=== PATIENT | female | born 1975 | race Caucasian/White ===

== ENCOUNTER 2017-09-27 10:35 | Outpatient (CLI) | payer OTHER ==
--- NOTE | 2017-09-27 13:49 | CT ---
ABDOMEN AND PELVIC CT SCAN WITH IV CONTRAST: History: 42-year-old female with epigastric and periumbilical pain. History of endoscopy this morning. FINDINGS: The lung bases are clear. Status post cholecystectomy. The pancreas, liver, adrenal glands and spleen are unremarkable. Several small renal cysts. No renal calculus or acute obstruction. Normal appea ring appendix. No mass, abscess, adenopathy, or abnormal fluid collection throughout the abdomen or p khushbu. Status post hysterectomy. 2 cm diameter left ovarian cyst. IMPRESSION: Status post cholecystectomy and hysterectomy. 2 cm diameter left ovarian cyst. Normal appearing appen shamika. No other significant acute process. POS: [facility]
[2017-09-27] MEDS ORDERED: Iopamidol 250 51% 100 ML VIAL FS ONE (14:02)
== END 2017-09-27 10:36 | disposition home or self-care (01) ==
LOC: CT 10:35
PROVIDERS: ATTEND Internal Medicine Gastroenterology
DX: R10.13 Epigastric pain (principal); R10.33 Periumbilical pain; N28.1 Cyst of kidney, acquired; Z90.49 Acquired absence of other specified parts of digestive tract; Z90.710 Acquired absence of both cervix and uterus
CPT/HCPCS: 74177

== ENCOUNTER 2017-12-13 07:40 | Day surgery (SDC) | payer OTHER ==
[2017-12-12 13:14] VITALS: BMI 40.1
[2017-12-13] MEDS ORDERED: PROPOFOL 200 MG/20 ML VIAL ONE (16:47)
[2017-12-13] MEDS ORDERED: Lidocaine 1% PF 5 ML VIAL ONE (16:47)
--- NOTE | 2017-12-14 15:10 | OP ---
DATE OF PROCEDURE: 12/13/2017 PROCEDURE PERFORMED: Colonoscopy. PREOPERATIVE DIAGNOSIS: Change in bowel habits, constipation and epigastric to periumbilical abdomin al pain PROCEDURE IN DETAIL: Informed consent was obtained from the patient. She was sedated with total int ravenous anesthesia. The rectal exam was performed and was normal. The preparation quality was exce llent. Colonoscope was advanced to the terminal ileum without difficulty. The mucosa of the termina l ileum was normal. The ileocecal valve and appendiceal orifice were clearly identified. The coloni c mucosa was normal throughout. Retroflexed views in the rectum were normal. IMPRESSION: Normal ileal colonoscopy. RECOMMENDATIONS: 1. MiraLax 17 grams daily. 2. Follow up in GI clinic.
== END 2017-12-13 10:14 | disposition home or self-care (01) ==
LOC: SDC 07:40
PROVIDERS: ATTEND Internal Medicine Gastroenterology
PROC: 0DJD8ZZ Inspection of Lower Intestinal Tract, Via Natural or Artificial Opening Endoscopic (ICD-10-PCS; principal; 2017-12-13)
DX: K59.00 Constipation, unspecified (principal); R10.10 Upper abdominal pain, unspecified; Z98.51 Tubal ligation status; Z90.710 Acquired absence of both cervix and uterus; Z90.49 Acquired absence of other specified parts of digestive tract; Z90.89 Acquired absence of other organs; Z90.79 Acquired absence of other genital organ(s); Z90.722 Acquired absence of ovaries, bilateral; Z98.890 Other specified postprocedural states; Z87.891 Personal history of nicotine dependence
CPT/HCPCS: J2001; J2704

== ENCOUNTER 2018-02-28 15:37 | Outpatient (CLI) | payer OTHER | END 2018-02-28 15:38 | disposition home or self-care (01) | LOC: DTY/OP 15:37 | PROVIDERS: ATTEND Surgery | DX: E66.01 Morbid (severe) obesity due to excess calories (principal) | CPT/HCPCS: 97802 ==

== ENCOUNTER 2018-03-08 15:08 | Outpatient (CLI) | payer OTHER | END 2018-03-08 15:09 | disposition home or self-care (01) | LOC: BICMAMMO 15:08 | PROVIDERS: ATTEND Family Medicine | DX: Z12.31 Encounter for screening mammogram for malignant neoplasm of breast (principal); N64.89 Other specified disorders of breast; R92.1 Mammographic calcification found on diagnostic imaging of breast | CPT/HCPCS: 77063; 77067 ==

== ENCOUNTER 2018-03-14 14:33 | Outpatient (CLI) | payer OTHER | END 2018-03-14 14:34 | disposition home or self-care (01) | LOC: BICULT 14:33 | PROVIDERS: ATTEND Family Medicine | DX: R92.2 Inconclusive mammogram (principal) ==

== ENCOUNTER → 2018-03-16 | Day surgery (SDC) | payer OTHER ==
--- NOTE | 2018-03-16 11:07 | MMO ---
STEREOTACTIC RIGHT BREAST BIOPSY BIOPSY MARKING CLIP PLACEMENT RIGHT BREAST: Date: 03/16/18 INDICATION: Area of focal asymmetry/architectural distortion involving the upper inner right breast. PROCEDURE: Informed consent was obtained. The patient was escorted to the procedural suite. Patient was placed o n the stereotactic table in the prone position with the area of interest at the right breast placed i nto compression and confirmed with stereotactic, mammographic views. The right breast was prepped and draped in the standard sterile fashion. After confirmation of appropriate location, topical anesthes ia, including buffered 1% lidocaine, was instilled into the right breast after standard sterile prepp ing and draping was performed. Small skin incision was made, through which a 10 gauge stereotactic bi opsy needle was advanced to the leading edge of the area of interest within the right breast. This wa s confirmed with stereotactic views and the needle was then deployed. After confirmation of needle pl acement, six core specimens were acquired. These were radiographed and then sent in a sealed containe r to pathology department for further analysis. Postprocedural clip placement was then performed through the existing incision site. Biopsy marking c lip was advanced to the biopsy site and clip was deployed. Images were obtained for confirmation. Patient was transferred to the mammography department and postprocedural mammographic views revealed biopsy change at the site of interest within the right breast with associated biopsy marking clip at the site of distortion. There were no procedural complications. IMPRESSION: 1. Technically successful stereotactic biopsy of right breast. 2. Technically successful clip deployment. Pathology results are pending. Patient will be notified when they are received. POS: [facility]
--- NOTE | 2018-03-16 19:20 | MMO ---
MAMMOGRAPHIC SURGICAL SPECIMEN RADIOGRAPH: CLINICAL INDICATIONS: Status post stereotactic biopsy, right breast. FINDINGS: Post procedural radiographic views of the excised specimens reveal appropriate specimen tissue within the radiographed specimen region. IMPRESSION: Radiographed specimens, status post stereotactic biopsy, right breast. POS: [facility]
== END ==
LOC: MAMMO 06:50
PROVIDERS: ATTEND Family Medicine
PROC: 0HBT3ZX Excision of Right Breast, Percutaneous Approach, Diagnostic (ICD-10-PCS; principal; 2018-03-16)
DX: N60.11 Diffuse cystic mastopathy of right breast (principal)
CPT/HCPCS: 19081; 76098; 88305

== ENCOUNTER 2018-04-12 09:58 | Day surgery (SDC) | payer OTHER ==
[2018-04-05 15:53] VITALS: BMI 41.0
[2018-04-12] MEDS ORDERED: Midazolam HCl 2 mg/2 ml Vial ONE (12:00)
[2018-04-12] MEDS ORDERED: CEFAZOLIN/Water 2 GM/20 ML SYRINGE ONE (13:00)
[2018-04-12] MEDS ORDERED: Fentanyl 100 MCG/2 ML VIAL ONE ×2 (13:04→14:37)
[2018-04-12] MEDS ORDERED: Bupivacaine/Epinephrine 0.25% 30 ML VIAL ONE (13:12)
[2018-04-12] MEDS ORDERED: Lidocaine 2% 10 ML INJ ONE (13:12)
[2018-04-12] MEDS ORDERED: PHENYLEPHRINE-NS 100 MCG/ML 10 ML SYRINGE ONE (13:59)
[2018-04-12] MEDS ORDERED: Ondansetron HCl/PF 4 MG/2 ML Vial ONE (13:59)
[2018-04-12] MEDS ORDERED: Lidocaine 1% PF 5 ML VIAL ONE (13:59)
[2018-04-12] MEDS ORDERED: PROPOFOL 200 MG/20 ML VIAL ONE (13:59)
--- NOTE | 2018-04-12 14:51 | MMO ---
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 FOLDER HAND: Dr. Navarrete. COMPLICATIONS: None. TECHNIQUE: Prior to the procedure, the risks and benefits of a needle localization of the right breast biopsy cl ip and asymmetry were explained to the patient and she consented fully to the procedure. Approach fro m superior was chosen. The patient was placed with compression. The upper aspect of the breast was prepped. The asymmetry an d clip were localized with the localization grid. Lidocaine was used to anesthetize the skin and soft tissues down towards the clip and asymmetry. A 7.5 cm [place] needle was then placed perpendicular to the grid, into the region of the asymmetry. Th e wire was deployed. There was good position of the needle and wire, which passed through the mass an d adjacent to the clip. The patient was sent to day surgery for eventual surgical excision of the mass. A specimen radiograph was performed, showing the needle to have been removed. The wire was seen passi ng through the asymmetry and immediately adjacent to the biopsy clip. The asymmetry and biopsy clip w ere in the center of the surgical specimen. IMPRESSION: Status post successful needle localization of right breast asymmetry. POS: [facility]
--- NOTE | 2018-04-13 14:49 | OP ---
DATE OF PROCEDURE: 04/12/2018 PREOPERATIVE DIAGNOSIS: Right breast mass. POSTOPERATIVE DIAGNOSIS: Right breast mass. PROCEDURE: Excision of right breast mass after needle localization. SURGEON: Chetan Uriostegui M.D. ANESTHESIA: General. ESTIMATED BLOOD LOSS: Minimal. COMPLICATIONS: None. SPECIMEN: Right breast mass marked with two short superior, one long lateral [facility]. TECHNIQUE: The patient had preoperative placement needle localization wire in her right breast and h er previous biopsy showing hyperplasia. Taken to the operating room and laid supine on the operating room table. After general anesthetic was obtained, the right breast and chest is prepped and draped in a sterile fashion. Incision was made near the nipple of the right breast and flaps are raised mendes perior, medially, inferolaterally posterior to the end of the needle localization wire. The breast s pecimen is marked with two short superior, one long lateral and sent to path for final diagnosis. Th e wound is irrigated. Local anesthetic is applied. The wound was closed using 3-0 Vicryl, 4-0 Monoc ryl, and Dermabond. The patient is taken to the recovery room in stable condition. All instrument c ounts, needle counts, lap counts are correct.
== END 2018-04-12 15:44 | disposition home or self-care (01) ==
LOC: SDC 09:58
PROVIDERS: ATTEND Surgery
PROC: 0HBT0ZX Excision of Right Breast, Open Approach, Diagnostic (ICD-10-PCS; principal; 2018-04-12)
DX: D05.11 Intraductal carcinoma in situ of right breast (principal); F41.8 Other specified anxiety disorders; Z79.899 Other long term (current) drug therapy
CPT/HCPCS: 19281; 76098; 88307; 88341; 88342; 88360; 96374; J0131; J2001; J2250; J2405; J2704; J3010; Q9968

== ENCOUNTER 2018-09-19 08:00 | Inpatient (IN) | payer OTHER ==
[2018-09-19 08:35] VITALS: BMI 42.0
[2018-10-03] MEDS ORDERED: Bupivacaine/Epinephrine 0.25% 30 ML VIAL ONE (09:34)
[2018-10-03] MEDS ORDERED: Heparin 5,000 UNITS/ML VIAL ONE (09:44)
[2018-10-03] MEDS ORDERED: Midazolam HCl 2 mg/2 ml Vial ONE (09:44)
[2018-10-03] MEDS ORDERED: CEFAZOLIN 2 GM/50 ML BAG ONE (09:44)
[2018-10-03] MEDS ORDERED: Fentanyl 100 MCG/2 ML VIAL ONE ×2 (09:45→11:40)
[2018-10-03] MEDS ORDERED: HYDROmorphone 2 MG/ML VIAL ONE (11:26)
[2018-10-03] MEDS ORDERED: Promethazine HCl 25 MG/ML VIAL SLOW IVP PRN (11:34)
[2018-10-03] MEDS ORDERED: HYDROmorphone 2 MG/ML VIAL SLOW IVP PRN (11:34)
[2018-10-03] MEDS ORDERED: Promethazine HCl 25 MG/ML VIAL IM PRN ×3 (11:34→14:03)
[2018-10-03] MEDS ORDERED: Meperidine HCl/PF 25 MG/ML VIAL SLOW IVP PRN (11:34)
[2018-10-03] MEDS ORDERED: Promethazine HCl 25 MG/ML VIAL ONE (11:40)
[2018-10-03] MEDS ORDERED: Meperidine HCl/PF 25 MG/ML VIAL ONE (11:40)
[2018-10-03] MEDS ORDERED: Naloxone HCl 0.4 mg/ml Vial IV PRN (11:51)
[2018-10-03] MEDS ORDERED: Zolpidem Tartrate 5 MG TAB PO PRN (11:51)
[2018-10-03] MEDS ORDERED: Ketorolac Tromethamine 30 MG/ML VIAL IVP PRN (11:51)
[2018-10-03] MEDS ORDERED: diphenhydrAMINE 50 MG/ML VIAL IVP PRN ×2 (11:51→14:03)
[2018-10-03] MEDS ORDERED: diphenhydrAMINE 25 MG CAP PO PRN (11:51)
[2018-10-03] MEDS ORDERED: fentaNYL Citrate/PF 2,000 MCG in Sodium Chloride 0.9% 60 ML IV PRN (11:51)
[2018-10-03] MEDS ORDERED: diphenhydrAMINE 50 MG/ML VIAL IM PRN (11:51)
[2018-10-03] MEDS ORDERED: Communication Order-Pharmacy FS SCH (12:00)
[2018-10-03] MEDS ORDERED: D5 1/2 NS w/20 mEq KCL 1,000 ML ONE (12:59)
[2018-10-03] MEDS ORDERED: Dextrose 5% in Water 1,000 ML IV PRN (14:03)
[2018-10-03] MEDS ORDERED: hydrALAZINE 20 MG/ML VIAL SLOW IVP PRN (14:03)
[2018-10-03] MEDS ORDERED: Ondansetron PF 4 MG/2 ML Vial IVP PRN (14:03)
[2018-10-03] MEDS ORDERED: Hydrocodone-Acetamin 15 ML UDCUP PO PRN (14:03)
[2018-10-03] MEDS ORDERED: Dextrose 50% Abboject 50 ML SYRINGE SLOW IVP PRN (14:03)
[2018-10-03] MEDS: D5 1/2 NS w/20 mEq KCL 1,000 ML IV SCH ×2 (14:57→22:31)
[2018-10-03] MEDS: Ondansetron PF 4 MG/2 ML Vial IVP PRN ×2 (15:29→21:56)
[2018-10-03] MEDS ORDERED: Lidocaine 1% PF 5 ML VIAL ONE (17:44)
[2018-10-03] MEDS ORDERED: PROPOFOL 200 MG/20 ML VIAL ONE (17:44)
[2018-10-03] MEDS ORDERED: Ketorolac Tromethamine 30 MG/ML VIAL ONE (17:44)
[2018-10-03] MEDS ORDERED: Metoclopramide HCl 10 MG/2 ML VIAL ONE (17:44)
[2018-10-03] MEDS ORDERED: Dexamethasone 20 MG/5 ML VIAL ONE (17:44)
[2018-10-03] MEDS ORDERED: Ondansetron PF 4 MG/2 ML Vial ONE (17:44)
[2018-10-03] MEDS ORDERED: Glycopyrrolate 0.2 MG/ML 5 ML SYRINGE ONE (17:44)
--- NOTE | 2018-10-03 18:58 | OP ---
DATE OF PROCEDURE: 10/03/2018 PREOPERATIVE DIAGNOSIS: Morbid obesity with a body mass index of 40. POSTOPERATIVE DIAGNOSES: 1. Morbid obesity with a body mass index of 40. 2. Paraesophageal hiatal hernia. PROCEDURE PERFORMED: 1. Laparoscopic sleeve gastrectomy with [place] staple line reinforcements and 38-[place] bougie. 2. Paraesophageal hiatal hernia repair without mesh or fundoplication. 3. EGD. ANESTHESIA: General. COMPLICATION: None. SPECIMEN: Stomach. FINDINGS: Small hiatal hernia. DESCRIPTION OF PROCEDURE: The patient was taken to the operating room and laid supine on the operating room table. After general anesthetic was obtained, bilateral legs and arms were double strapped to bariatric table. The abdomen was prepped and draped in a sterile fashion. Left subcostal 5-mm Optiview trocar was placed in usual fashion. High-flow pneumoperitoneum was obtained. Left and right abdominal 12-mm ports as well as right subcostal 5-mm port were placed under direct visualization. A 5-mm incision was made below the xiphoid and Rosa was used to raise the liver off the GE junction. Short gastrics were taken down mid body of stomach to left berry of the diaphragm. Left berry posterior fundus was completely dissected, it revealed a hiatal hernia. Short gastrics were taken down to a distance of 5 cm proximal to the pylorus. Circumferential dissection of the esophagus was performed at the GE junction, pulling the fundus back down into the abdomen. This was performed to the gastrohepatic ligament side as well. A 38 bougie was brought in with its tip left in the antrum of the stomach. Multiple loads of the [place] stapling device with [place] staple line reinforcements were used to perform the sleeve. At first, it was fired at a distance of 6 cm proximal to the pylorus, angled up towards the incisura. Care was taken to avoid being too close to incisura. Multiple loads were then fired up along the bougie. Stomach was completely transected at the angle of His. Stomach was removed from the left abdominal incision. The fascial defect was closed using [place] needle 0 Vicryl tie. One Ethibond suture and the tie knot system were used to close the crural defect posteriorly. No bleeding on the staple line. The bougie was removed and the EGD scope was passed into the esophagus, stomach, and to the level of duodenum without obstruction. There was no air leakage on the staple line or bleeding. There was no evidence of stricture at the incisura or at the diaphragmatic hiatus. EGD scope was used to decompress the stomach, it was pulled and removed. Rosa retractor was removed under direct visualization without bleeding. No bleeding in the abdomen. All ports were removed under direct visualization without bleeding. Pneumoperitoneum was let down. The Vicryl was used to close the fascial defect from the left abdominal incisions. All incisions were irrigated and closed using 4-0 Monocryl and Dermabond. The patient was sent to Recovery in stable condition. All instrument counts, needle counts, lap counts were correct. Job ID: [id number]
[2018-10-03] MEDS: Acetaminophen 1,000 MG in Premix Bag 1 BAG IVPB SCH ×2 (19:34→23:57)
[2018-10-03] MEDS: Enoxaparin Sodium 40 MG/0.4 ML SYRINGE SC SCH (20:41)
[2018-10-04] MEDS: Ondansetron PF 4 MG/2 ML Vial IVP PRN ×3 (05:18→20:55)
[2018-10-04] MEDS: Acetaminophen 1,000 MG in Premix Bag 1 BAG IVPB SCH ×2 (05:19→11:12)
[2018-10-04 06:28] LABS: #Lymphocytes 1.5 thou/uL (1.20-3.40); #Monocytes 0.9 thou/uL (0.11-0.59); #Neutrophils 5.8 thou/uL (1.40-6.50); %Basophils 0.1 % (0.0-1.0); %Eosinophils 0.1 % (0.0-10.0); %Lymphocytes 17.9 % (21.0-51.0); %Monocytes 10.8 % (0.0-10.0); %Neutrophils 71.2 % (42.0-75.0); Hemoglobin 12.9 g/dL (12.0-16.0); Mean Corpuscular HGB CONC 33.4 g/dL (32.0-36.0); Mean Corpuscular Hemoglobin 32.6 pg (27.0-31.0); Mean Corpuscular Volume 97.7 fL (78.0-98.0); Mean Platelet Volume 7.5 fL (7.4-10.4); Platelet Count 227 thou/uL (130-400); RBC Distribution Width 11.2 % (11.5-14.5); Red Blood Cell (RBC) Count 3.95 mill/uL (4.20-5.40); White Blood Cell (WBC) Count 8.1 thou/uL (4.8-10.8)
[2018-10-04 06:45] LABS: Anion Gap 13 mmol/L (10-20); BUN (Urea Nitrogen) 6 mg/dL (7.0-18.7); Calc. Creatinine Clearance 175 mL/min (70-130); Calcium 8.4 mg/dL (7.8-10.44); Carbon Dioxide 18 mmol/L (22-29); Chloride 111 mmol/L (98-107); Estimated GFR-MDRD 88; Glucose 133 mg/dL (70-105); Sodium 138 mmol/L (136-145)
[2018-10-04] MEDS: D5 1/2 NS w/20 mEq KCL 1,000 ML IV SCH ×3 (07:00→23:34)
[2018-10-04] MEDS: Pantoprazole 40 MG VIAL IVP SCH (09:10)
--- NOTE | 2018-10-04 14:36 | PRG ---
DATE OF SERVICE: 10/04/2018 SUBJECTIVE: Postop day #1 gastric sleeve. Ms. Willis has been up. She is drinking her liquids. She is not vomiting; however, she has nausea and some dizziness. OBJECTIVE: VITAL SIGNS: Pulse is 81, respirations 14, she is afebrile. Blood pressure 116/77. She has voided multiple times. CHEST: Clear. HEART: Regular rate and rhythm. ABDOMEN: Soft, appropriately tender. Wounds are healing well. ASSESSMENT: Postop day #1 gastric sleeve with persistent nausea. PLAN: Keep tonight, likely home tomorrow. Job ID: [id number]
[2018-10-04] MEDS: Hydrocodone-Acetamin 15 ML UDCUP PO PRN ×2 (15:11→23:34)
[2018-10-04] MEDS: Enoxaparin Sodium 40 MG/0.4 ML SYRINGE SC SCH (20:49)
[2018-10-05] MEDS: D5 1/2 NS w/20 mEq KCL 1,000 ML IV SCH (07:59)
[2018-10-05] MEDS: Pantoprazole 40 MG VIAL IVP SCH (08:01)
[2018-10-05 08:18] VITALS: BP 113/76; TEMP 98.1
--- NOTE | 2018-10-05 14:29 | DIS ---
DATE OF ADMISSION: 10/03/2018 DATE OF DISCHARGE: 10/05/2018 ADMITTING DIAGNOSIS: Morbid obesity. DISCHARGE DIAGNOSIS: Morbid obesity. PROCEDURE: Laparoscopic sleeve by Dr. Uriostegui without complication. CONDITION UPON DISCHARGE: Improved. HOSPITAL COURSE: On postop day #2, the patient is doing well. Her nausea is improved. She is tolerating liquids, ambulatory. Vital signs are stable. She was discharged home. She will follow up with me in 2 weeks. Job ID: [id number]
== END 2018-10-05 12:00 | disposition home or self-care (01) | DRG 621 ==
LOC: SURG A 10-03 07:55 → EDSTATUS 10-03 08:00 → SURG A 10-03 14:21
PROVIDERS: ADMIT Surgery; ATTEND Surgery
PROC: 0DB64Z3 Excision of Stomach, Percutaneous Endoscopic Approach, Vertical (ICD-10-PCS; principal; 2018-10-03)
PROC: 0BQT4ZZ Repair Diaphragm, Percutaneous Endoscopic Approach (ICD-10-PCS; 2018-10-03)
DX: E66.01 Morbid (severe) obesity due to excess calories (principal); Z68.41 Body mass index [BMI] 40.0-44.9, adult; K44.9 Diaphragmatic hernia without obstruction or gangrene; N80.9 Endometriosis, unspecified; F32.9 Major depressive disorder, single episode, unspecified; F41.9 Anxiety disorder, unspecified; K58.9 Irritable bowel syndrome, unspecified; R11.0 Nausea; Z82.49 Family history of ischemic heart disease and other diseases of the circulatory system
CPT/HCPCS: 36415; 80048; 85025; 88307; 88312; 94760; C9113; J0131; J1100; J1170; J1610; J1644; J1650; J1885; J2001; J2175; J2250; J2405; J2550; J2704; J2765; J3010; J7050

== ENCOUNTER 2018-09-19 08:09 | Outpatient (CLI) | payer OTHER ==
[2018-09-19 09:55] LABS: #Eosinphils 0.1 thou/uL (0.0-0.7); #Lymphocytes 1.1 thou/uL (1.20-3.40); #Monocytes 0.5 thou/uL (0.11-0.59); #Neutrophils 3.5 thou/uL (1.40-6.50); %Basophils 0.5 % (0.0-1.0); %Eosinophils 2.5 % (0.0-10.0); %Lymphocytes 21.6 % (21.0-51.0); %Monocytes 9.4 % (0.0-10.0); %Neutrophils 65.9 % (42.0-75.0); Hemoglobin 12.4 g/dL (12.0-16.0); Mean Corpuscular HGB CONC 34.2 g/dL (32.0-36.0); Mean Corpuscular Hemoglobin 33.2 pg (27.0-31.0); Mean Corpuscular Volume 97.1 fL (78.0-98.0); Mean Platelet Volume 8.7 fL (7.4-10.4); Platelet Count 174 thou/uL (130-400); RBC Distribution Width 11.2 % (11.5-14.5); Red Blood Cell (RBC) Count 3.75 mill/uL (4.20-5.40); White Blood Cell (WBC) Count 5.3 thou/uL (4.8-10.8)
[2018-09-19 10:08] LABS: ALT (SGPT) 21 U/L (8-55); AST (SGOT) 15 U/L (5-34); Albumin 3.7 g/dL (3.5-5.0); Alkaline Phosphatase 49 U/L (40-150); Anion Gap 12 mmol/L (10-20); BUN (Urea Nitrogen) 15 mg/dL (7.0-18.7); Bilirubin, Direct 0.2 mg/dL (0.1-0.3); Bilirubin, Total 0.6 mg/dL (0.2-1.2); Calc. Creatinine Clearance 0 mL/min (70-130); Calcium 8.8 mg/dL (7.8-10.44); Carbon Dioxide 20 mmol/L (22-29); Chloride 110 mmol/L (98-107); Estimated GFR-MDRD 87; Globulin 2.5 g/dL (2.4-3.5); Glucose 95 mg/dL (70-105); Hemoglobin A1c 4.8 % (4.0-6.0); Potassium 3.5 mmol/L (3.5-5.1); Protein, Total 6.2 g/dL (6.0-8.3); Sodium 138 mmol/L (136-145)
--- NOTE | 2018-09-19 13:16 | EKG ---
Test Reason : Blood Pressure : / mmHG Vent. Rate : 066 BPM Atrial Rate : 066 BPM P-R Int : 158 ms QRS Dur : 092 ms QT Int : 392 ms P-R-T Axes : 028 037 011 degrees QTc Int : 410 ms Normal sinus rhythm Nonspecific T wave abnormality Abnormal ECG When compared with ECG of 08-DEC-2009 11:35, No significant change was found Confirmed by AKASH GOMEZ, SShorty ([id number]) on 09/19/2018 1:15:52 PM Referred By: VELMA Confirmed By:DR. Shobha BUSTOS MD
== END 2018-09-19 08:10 | disposition home or self-care (01) ==
LOC: LABBT 08:09
PROVIDERS: ATTEND Surgery
DX: Z01.818 Encounter for other preprocedural examination (principal); E66.01 Morbid (severe) obesity due to excess calories
CPT/HCPCS: 80053; 80076; 83036; 85025; 93005; 93010

== ENCOUNTER 2019-03-12 14:45 | Outpatient (CLI) | payer OTHER ==
--- NOTE | 2019-03-12 15:33 | MMO ---
Bilateral MAMMO Bilat Diag DDI+HARMONY. CLINICAL HISTORY: Patient is 44 years old and is seen for diagnostic exam. The patient has no family history of breast cancer. The patient has no personal history of cancer. VIEWS: The views performed were: bilateral craniocaudal with tomosynthesis; bilateral mediolateral oblique with tomosynthesis; and bilateral mediolateral. FILMS COMPARED: The present examination has been compared to prior imaging studies performed at [facility] on 06/17/2014 and 03/08/2018, and at [facility] on 12/30/2011. MAMMOGRAM FINDINGS: There are scattered fibroglandular densities. There is an area of architectural distortion with associated post-surgical scar seen in the right breast. There are no suspicious masses, suspicious calcifications, or new areas of architectural distortion. IMPRESSION: A ROUTINE FOLLOW-UP MAMMOGRAM IN 1 YEAR IS RECOMMENDED. THE RESULTS OF THIS EXAM WERE SENT TO THE PATIENT. ACR BI-RADS Category 2 - Benign finding MAMMOGRAPHY NOTE: 1. A negative mammogram report should not delay a biopsy if a dominant of clinically suspicious mass is present. 2. Approximately 10% to 15% of breast cancers are not detected by mammography. 3. Adenosis and dense breasts may obscure an underlying neoplasm.
== END 2019-03-12 14:46 | disposition home or self-care (01) ==
LOC: BICMAMMO 14:45
PROVIDERS: ATTEND Internal Medicine Hematology & Oncology
DX: C50.211 Malignant neoplasm of upper-inner quadrant of right female breast (principal)
CPT/HCPCS: 77066; G0279

== ENCOUNTER 2019-08-13 16:08 | Outpatient (CLI) | payer OTHER ==
--- NOTE | 2019-08-13 16:48 | RAD ---
EXAM: Right femur: 4 views INDICATIONS: Femur pain COMPARISON: None. FINDINGS: No fracture. No osseous abnormality. IMPRESSION: Negative exam
--- NOTE | 2019-08-13 16:50 | RAD ---
EXAM: Left femur: 4 views INDICATIONS: Femur pain COMPARISON: None. FINDINGS: No fracture. No osseous abnormality. IMPRESSION: No acute finding
== END 2019-08-13 16:09 | disposition home or self-care (01) ==
LOC: BICRAD 16:08
PROVIDERS: ATTEND Internal Medicine Hematology & Oncology
DX: M25.551 Pain in right hip (principal); M25.552 Pain in left hip; C50.211 Malignant neoplasm of upper-inner quadrant of right female breast
CPT/HCPCS: 36415; 80053; 82306; 82607; 82728; 82746; 83735; 83970; 84443

== ENCOUNTER 2019-08-31 13:35 | Outpatient (CLI) | payer OTHER ==
[~2019-08-31 13:35] MED LIST: Magnevist 469MG/ML 20 ML VIAL ONE
--- NOTE | 2019-08-31 18:21 | MRI ---
MRI Lumbar Spine with and without IV contrast: HISTORY: Acute left-sided low back pain with sciatica. COMPARISON: None FINDINGS: A 1.4 cm increased T2-weighted signal intensity lesion is seen in the midportion left kidney with a 0 .9 cm increased T2-weighted signal intensity lesion seen in the inferior pole left kidney each of which demonstrates corresponding decreased T1-weighted signal intensity without enhancement on the po stcontrast images. Tiny subcentimeter increased T2-weighted signal intensity foci are seen in the inferior pole right kidney which also do not appear to demonstrate enhancement and likely represents cysts. The remainder of the retroperitoneal structures demonstrate a grossly normal appearance. Conus medullaris is normal in morphology and terminates at the L1 level. L1-2: There is no disc bulge or disc herniation. Central spinal canal and neural foramina are patent. L2-3: There is no disc bulge or disc herniation. Central spinal canal and neural foramina are patent. L3-4: There is minimal disc bulge, but the central spinal canal and neural foramina are patent. L4-5: There is a mild disc osteophyte complex. This results in mild effacement of the ventral aspect of the thecal sac, but there is no significant neural foraminal narrowing. L5-S1: There is no disc bulge or disc herniation. Central spinal canal and neural foramina are patent . No abnormal areas of enhancement are seen after the administration of intravenous contrast. IMPRESSION: 1. Minimal degenerative changes at the L3-4 and L4-5 levels. There is no significant central canal or neural foraminal narrowing at any level of the lumbar spine. 2. Bilateral renal cysts.
== END 2019-08-31 13:36 | disposition home or self-care (01) ==
LOC: SCSMRI 13:35
PROVIDERS: ATTEND Family Medicine
DX: M54.42 Lumbago with sciatica, left side (principal); M47.816 Spondylosis without myelopathy or radiculopathy, lumbar region; N28.1 Cyst of kidney, acquired
CPT/HCPCS: 72158; A9579

== ENCOUNTER 2019-09-28 14:32 | Outpatient (CLI) | payer OTHER ==
--- NOTE | 2019-09-28 16:27 | MRI ---
MR of the left leg (left hip and left thigh) without contrast Indication: History of left leg and left hip pain. TECHNIQUE: Multiplanar multisequence MR images were obtained of the left hip without IV contrast. Com parisons are made with an MR lumbar spine dated 08/31/[address] of the abdomen and pelvis dated 10/07/2017. FINDINGS: There is mild tendinosis and trochanteric bursitis involving the left gluteus minimus and m edius tendon. The left rectus femoris and left hamstring origin appear within normal limits. No iliopsoas bursitis is evident. No enlarged lymph nodes are evident. There is a 4.0 x 3.9 cm T1 hyperi ntense, T2 hyperintense lesion involving the region left adnexa suspicious for hemorrhagic cyst. There is no evidence for fracture. The visualized musculature of the proximal left thigh appears with in normal limits. No bone marrow signal abnormality seen involving visualized aspects of the left femur. There is no evidence to suggest presence of a stress fracture. No joint effusion is evident. IMPRESSION: 1. Mild tendinosis involving left gluteus minimus and medius tendon with mild trochanteric bursitis. 2. 4.0 cm suspected left adnexal hemorrhagic cyst. Follow-up ultrasound in 6-8 weeks is recommended t o document resolution. 3. No definite abnormal signal intensity seen within the left thigh musculature. No abnormal marrow s ignal intensity seen involving the left femur up to the level of the distal femoral metadiaphyseal region.
--- NOTE | 2019-09-28 17:07 | MRI ---
MRI lumbar spine without and with gadolinium contrast HISTORY: Low back pain with left leg radiculopathy. COMPARISON: 08/31/2019. FINDINGS: Conus medullaris has normal appearance. Vertebral body heights and alignment are maintained . Small hemangioma within the L2 vertebral body. Small cysts of the kidneys are apparent. Sagittal images partially demonstrate a multiloculated cysti c lesion within the left side of the pelvis. It is incompletely imaged. At the L4-5 level, there is minimal posterior disc bulge. Degenerative changes of the facets. Thecal sac is patent. Mild stenosis of each neural foramen. IMPRESSION: Mild degenerative changes at the L4-5 level. No focal disc herniation or nerve root compr ession. Probable left adnexal complex cyst. Please correlate regarding possibility of left adnexal mass as th e source of pain. Pelvic sonogram may be helpful for better characterization.
== END 2019-09-28 14:33 | disposition home or self-care (01) ==
LOC: BICMRI 14:32
PROVIDERS: ATTEND Family Medicine
DX: M54.42 Lumbago with sciatica, left side (principal); M79.605 Pain in left leg; M70.62 Trochanteric bursitis, left hip; M67.952 Unspecified disorder of synovium and tendon, left thigh; M47.816 Spondylosis without myelopathy or radiculopathy, lumbar region
CPT/HCPCS: 72158; A9579

== ENCOUNTER 2019-10-05 07:02 | Outpatient (CLI) | payer OTHER ==
--- NOTE | 2019-10-05 08:03 | ULT ---
ULTRASOUND PELVIC DOPPLER DUPLEX: DATE: 10/05/2019 HISTORY: Cystic lesion found in the left side of the pelvis, on lumbar spine MRI of 09/28/2019 in 44-year-old f emale. TECHNIQUE: Transabdominal transducer used to visualize intrapelvic contents with grayscale, color-flow, and spec tral analysis. Transvaginal ultrasound not performed. FINDINGS: Right ovary: Surgically absent by history. Uterus: Surgically absent. Left ovary: Approximately 2.5 x 4 x 2 cm. 2 x 2 x 1.5 cm left ovarian simple cyst. Blood flow demonstrated in the left ovary by Doppler. IMPRESSION: 1. A 2 cm left ovarian cyst. This is significantly smaller than the complex cystic lesion partially v isualized on the recent lumbar spine MRI, and may not correspond to that. 2. Status post hysterectomy and right oophorectomy.
== END 2019-10-05 07:03 | disposition home or self-care (01) ==
LOC: BICULT 07:02
PROVIDERS: ATTEND Family Medicine
DX: N94.9 Unspecified condition associated with female genital organs and menstrual cycle (principal); N83.202 Unspecified ovarian cyst, left side; Z90.710 Acquired absence of both cervix and uterus; Z90.721 Acquired absence of ovaries, unilateral
CPT/HCPCS: 36415; 76856; 82306; 82607; 82728; 84425; 93976

== ENCOUNTER 2020-05-09 14:20 | Outpatient (CLI) | payer OTHER ==
--- NOTE | 2020-05-09 14:51 | MMO ---
Bilateral MAMMO Bilat Diag DDI+HARMONY. CLINICAL HISTORY: Patient is 45 years old and is seen for diagnostic exam. The patient has no family history of breast cancer. The patient has no personal history of cancer. The patient has a history of right Lumpectomy in 2018 - malignant and right Ultrasound Guided Core Biopsy in 2018 - malignant. VIEWS: The views performed were: bilateral craniocaudal with tomosynthesis; bilateral mediolateral oblique with tomosynthesis; and bilateral mediolateral with tomosynthesis. FILMS COMPARED: The present examination has been compared to prior imaging studies performed at [facility] on 06/17/2014, 03/08/2018 and 03/12/2019, and at [facility] on 12/30/2011. This study has been interpreted with the assistance of computer-aided detection. MAMMOGRAM FINDINGS: There are scattered fibroglandular densities. Finding 1: There are stable post operative changes seen in the right breast. Finding 2: There are stable benign appearing calcifications seen in both breasts. There are no suspicious masses, suspicious calcifications, or new areas of architectural distortion. IMPRESSION: THERE IS NO MAMMOGRAPHIC EVIDENCE OF MALIGNANCY. A ROUTINE FOLLOW-UP MAMMOGRAM IN 1 YEAR IS RECOMMENDED. THE RESULTS OF THIS EXAM WERE SENT TO THE PATIENT. ACR BI-RADS Category 2 - Benign finding MAMMOGRAPHY NOTE: 1. A negative mammogram report should not delay a biopsy if a dominant of clinically suspicious mass is present. 2. Approximately 10% to 15% of breast cancers are not detected by mammography. 3. Adenosis and dense breasts may obscure an underlying neoplasm. Reported by: ONEYDA BRAGA MD Electonically Signed: [id number]
== END 2020-05-09 14:21 | disposition home or self-care (01) ==
LOC: BICMAMMO 14:20
PROVIDERS: ATTEND Family Medicine
DX: D05.10 Intraductal carcinoma in situ of unspecified breast (principal)
CPT/HCPCS: 77066; G0279

== ENCOUNTER 2021-07-06 13:50 | Outpatient (CLI) | payer OTHER | END 2021-07-06 13:51 | disposition home or self-care (01) | LOC: BICMAMMO 13:50 | PROVIDERS: ATTEND Family Medicine | DX: Z08 Encounter for follow-up examination after completed treatment for malignant neoplasm (principal); Z85.3 Personal history of malignant neoplasm of breast | CPT/HCPCS: 77066; G0279 ==

== ENCOUNTER 2021-09-15 07:35 | Outpatient (CLI) | payer OTHER | END 2021-09-15 07:36 | disposition home or self-care (01) | LOC: BICMRI 07:35 | PROVIDERS: ATTEND Family Medicine | DX: N64.4 Mastodynia (principal) | CPT/HCPCS: A9577; C8908 ==

== ENCOUNTER 2022-07-07 09:34 | Outpatient (CLI) | payer BC | END 2022-07-07 09:35 | disposition home or self-care (01) | LOC: BICMAMMO 09:34 | PROVIDERS: ATTEND Family Medicine | DX: Z08 Encounter for follow-up examination after completed treatment for malignant neoplasm (principal); Z85.3 Personal history of malignant neoplasm of breast | CPT/HCPCS: 77066; G0279 ==

== ENCOUNTER 2022-11-23 14:33 | Outpatient (CLI) | payer BC | END 2022-11-23 14:34 | disposition home or self-care (01) | LOC: BICMAMMO 14:33 | PROVIDERS: ATTEND Family Medicine | DX: N63.21 Unspecified lump in the left breast, upper outer quadrant (principal) | CPT/HCPCS: G0279 ==